=== PATIENT | male | born 1965 | race Caucasian/White ===

== ENCOUNTER 2017-03-16 00:34 | Emergency (ER) | payer OTHER ==
[2017-03-16 00:41] VITALS: RESP 16
[2017-03-16] MEDS ORDERED: ASPIRIN 81 MG CHEWABLE TAB PO ONE (00:44)
[2017-03-16] MEDS ORDERED: NS 1,000 ML IV ONE ×2 (00:44→02:12)
--- NOTE | 2017-03-16 00:50 | CPEKG ---
Heart Rate: 65 RR Interval: 923 P-R Interval: 160 QRSD Interval: 102 QT Interval: 440 QTC Interval: 458 P [place]: 67 QRS [place]: 82 T Wave [place]: 49 EKG Severity - NORMAL ECG - EKG Impression: SINUS RHYTHM Electronically Signed By: Ceasar Mcneal 16-Mar-2017 06:58:08
--- NOTE | 2017-03-16 00:56 | EDPHY ---
H & P Stated Complaint: CP, lightheaded HPI/ROS: HPI CHIEF COMPLAINT: Fatigue, lightheadedness, chest discomfort HISTORY OF PRESENT ILLNESS: This patient is a 52-year-old male, he is otherwise healthy does have hyperlipidemia and hypertension also he reports a family history of cardiac disease in his father who at age 62 from atherosclerosis and smoking he presents emergency room as he states he did not feel very well today. He had some nausea and lightheadedness. He also developed some chest discomfort this evening describes as substernal as a discomfort sensation but no significant pain. Denies focal weakness but does endorse global fatigue and malaise. He decided to get on lining [employer] the symptoms arm thought maybe he should come to the emergency room for cardiac evaluation. Upon arrival to the emergency room is hemodynamically stable he does complain of some chest discomfort as a discomfort sensation in the substernal region. Also some shortness of breath. And global fatigue and global weakness. Endorses nausea. Past Medical History: Hypertension, hyperlipidemia Past Surgical History: Left ankle surgery, shoulder surgery Social History: Denies daily use drugs alcohol tobacco products. Family History: Family history of cardiac disease. ROS REVIEW OF SYSTEMS: A comprehensive 10 point review of systems is otherwise negative aside from elements mentioned in the history of present illness. Exam Constitutional appears well nontoxic triage nursing summary reviewed, vital signs reviewed, awake/alert. Eyes normal conjunctivae and sclera, EOMI, PERRLA. HENT normal inspection, atraumatic, moist mucus membranes, no epistaxis, neck supple/ no meningismus, no raccoon eyes. Respiratory clear to auscultation bilaterally, normal breath sounds, no respiratory distress, no wheezing. Cardiovascular rate normal, regular rhythm, no murmur, no edema, distal pulses normal. Gastrointestinal soft, non-tender, no rebound, no guarding, normal bowel sounds, no distension, no pulsatile mass. Genitourinary no CVA tenderness. Musculoskeletal no midline vertebral tenderness, full range of motion, no calf swelling, no tenderness of extremities, no meningismus, good pulses, neurovascularly intact. Skin pink, warm, & dry, no rash, skin atraumatic. Neurologic awake, alert and oriented x 3, AAOx3, moves all 4 extremities equally, motor intact, sensory intact, CN II-XII intact, normal cerebellar, normal vision, normal speech. Psychiatric normal mood/affect. Heme/Lymph/Immune no lymphadenopathy. 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 Re-evaluate. Re-evaluation: EKG interpretation by me on record in [employer] system. Impression time of EKG 0048: This EKG is sinus rhythm rate of 65. There is no acute ischemic changes specifically no ST elevation. ST depression or significant T-wave abnormalities. No prolonged intervals. Unremarkable EKG. 0211: Blood work has been reviewed negative troponin negative D-dimer. Chest x -ray unremarkable. Patient is feeling better after IV fluids. I recommend that he be admitted overnight to the hospital for observation serial cardiac markers and stress test however patient states that he does not want to be admitted and is refusing hospital admission states he wants to go home. He thinks he has an acute anxiety presentation. Since he is declined hospital admission the plan will be to repeat his EKG and troponin at the 4 hour love. If these are negative I will allow her to go home as he does not have ongoing chest pain at this time. He will need close cardiology follow-up. Additionally if he develops chest pain or shortness of breath he should return to the emergency room he understands this. ED x-ray chest one view negative for acute cardiopulmonary disease. 0502:AM: Patient's repeat EKG time of EKG 5:01 a.m., this is sinus rhythm rate of 59 no acute ischemic change appreciated this EKG. Unremarkable EKG. Unchanged from previous EKG. Patient's repeat troponin is pending at this time. Patient has been sleeping here in the emergency room he has no complaints he denies chest pain or shortness of breath he feels well. He is eager to get home. I do recommend that he follows up with Cardiology on outpatient basis. Additionally he understands return emergency room if develops chest pain shortness of breath or worsening symptoms. He is agreeable this plan. I recommend he sees cardiology over the next week to 2 weeks. Return if worse. Repeat troponin is negative. Patient resting no complaints. Safe for discharge. Understands return emergency room if he has worsening symptoms questions or concerns. Source: Patient - Personal History Current Tetanus/Diphtheria Vaccine: Unsure - Medical/Surgical History Hx Asthma: No Hx Chronic Respiratory Disease: No Hx Diabetes: No Hx Cardiac Disease: No Hx Renal Disease: No Hx Cirrhosis: No Hx Alcoholism: No Hx HIV/AIDS: No Hx Splenectomy or Spleen Trauma: No Other PMH: PMHx: heartburn, high cholesterol. PSHx: shoulder, ankle - Social History Smoking Status: Never smoked Constitutional: Initial Vital Signs Temperature (C) 36.5 C 03/16/17 00:37 Heart Rate 63 03/16/17 00:37 Respiratory Rate 16 03/16/17 00:37 Blood Pressure 146/82 H 03/16/17 00:37 O2 Sat (%) 97 03/16/17 00:37 O2 Delivery Mode Room Air Allergies/Adverse Reactions: No Known Allergies Allergy (Unverified 03/16/17 00:36) Home Medications: Medication Instructions Recorded Atorvastatin Calcium 03/16/17 Nexium 03/16/17 Medical Decision Making - Data Points Laboratory Results: Laboratory Results 03/16/17 00:50 03/16/17 00:50 03/16/17 03/16/17 03/16/17 05:00 00:50 00:50 WBC RBC Hgb Hct MCV MCH MCHC RDW Plt Count MPV Neut % (Auto) Lymph % (Auto) [place] % (Auto) Eos % (Auto) Baso % (Auto) Nucleat RBC Rel Count Absolute Neuts (auto) Absolute Lymphs (auto) Absolute Monos (auto) Absolute Eos (auto) Absolute Basos (auto) Absolute Nucleated RBC Immature Gran % Immature Gran # PT 13.3 SEC SEC (12.0-15.0) INR 1.02 (0.83-1.16) APTT 25.7 SEC SEC (23.0-38.0) D-Dimer < 0.27 ug/mLFEU ug/mLFEU (0.00-0.50) Sodium 139 mEq/L mEq/L (134-144) Potassium 3.5 mEq/L mEq/L (3.5-5.2) Chloride 98 mEq/L mEq/L (97-110) Carbon Dioxide 25 mEq/l mEq/l (22-31) Anion Gap 16 mEq/L mEq/L (8-16) BUN 12 mg/dL mg/dL (7-23) Creatinine 1.3 mg/dL mg/dL (0.7-1.3) Estimated GFR 58 Glucose 88 mg/dL mg/dL (70-100) Calcium 9.8 mg/dL mg/dL (8.5-10.4) Magnesium 1.9 mg/dL mg/dL (1.6-2.3) Total Bilirubin 1.1 mg/dL mg/dL (0.1-1.4) Conjugated Bilirubin 0.0 mg/dL mg/dL (0.0-0.5) Unconjugated Bilirubin 1.1 mg/dL mg/dL (0.0-1.1) AST 47 IU/L IU/L (17-59) ALT 54 IU/L IU/L (21-72) Alkaline Phosphatase 56 IU/L IU/L (38-126) Creatine Kinase 285 IU/L H IU/L (0-224) CK-MB (CK-2) Fraction 2.36 ng/mL ng/mL (0.00-3.19) CK-MB (CK-2) % 0.8 % % (0.0-4.0) Creatine Kinase Interp NEGATIVE (NEGATIVE) Troponin I < 0.012 ng/mL ng/mL < 0.012 ng/mL ng/mL (0.000-0.034) (0.000-0.034) NT-Pro-B Natriuret Pep 35 pg/mL pg/mL (0-125) Total Protein 7.8 g/dL g/dL (6.3-8.2) Albumin 5.1 g/dL H g/dL (3.5-5.0) Lipase 111 IU/L IU/L (23-300) 03/16/17 00:50 WBC 6.46 10^3/uL 10^3/uL (3.80-9.50) RBC 5.01 10^6/uL 10^6/uL (4.40-6.38) Hgb 16.0 g/dL g/dL (13.7-17.5) Hct 44.4 % % (40.0-51.0) MCV 88.6 fL fL (81.5-99.8) MCH 31.9 pg pg (27.9-34.1) MCHC 36.0 g/dL g/dL (32.4-36.7) RDW 11.7 % % (11.5-15.2) Plt Count 269 10^3/uL 10^3/uL (150-400) MPV 9.2 fL fL (8.7-11.7) Neut % (Auto) 56.0 % % (39.3-74.2) Lymph % (Auto) 33.3 % % (15.0-45.0) [place] % (Auto) 8.8 % % (4.5-13.0) Eos % (Auto) 1.2 % % (0.6-7.6) Baso % (Auto) 0.5 % % (0.3-1.7) Nucleat RBC Rel Count 0.0 % % (0.0-0.2) Absolute Neuts (auto) 3.62 10^3/uL 10^3/uL (1.70-6.50) Absolute Lymphs (auto) 2.15 10^3/uL 10^3/uL (1.00-3.00) Absolute Monos (auto) 0.57 10^3/uL 10^3/uL (0.30-0.80) Absolute Eos (auto) 0.08 10^3/uL 10^3/uL (0.03-0.40) Absolute Basos (auto) 0.03 10^3/uL 10^3/uL (0.02-0.10) Absolute Nucleated RBC 0.00 10^3/uL 10^3/uL (0-0.01) Immature Gran % 0.2 % % (0.0-1.1) Immature Gran # 0.01 10^3/uL 10^3/uL (0.00-0.10) PT INR APTT D-Dimer Sodium Potassium Chloride Carbon Dioxide Anion Gap BUN Creatinine Estimated GFR Glucose Calcium Magnesium Total Bilirubin Conjugated Bilirubin Unconjugated Bilirubin AST ALT Alkaline Phosphatase Creatine Kinase CK-MB (CK-2) Fraction CK-MB (CK-2) % Creatine Kinase Interp Troponin I NT-Pro-B Natriuret Pep Total Protein Albumin Lipase Medications Given: Discontinued Medications Aspirin (Aspirin) 324 mg PO EDNOW ONE Stop: 03/16/17 00:45 Last Admin: 03/16/17 01:12 Dose: 324 mg Sodium Chloride (Ns) 1,000 mls @ 0 mls/hr IV EDNOW ONE; Wide Open PRN Reason: Protocol Stop: 03/16/17 00:45 Last Admin: 03/16/17 01:11 Dose: 1,000 mls Sodium Chloride (Ns) 1,000 mls @ 0 mls/hr IV ONCE ONE PRN Reason: Wide Open Stop: 03/16/17 02:13 Last Admin: 03/16/17 02:20 Dose: 1,000 mls Ondansetron HCl (Zofran) 4 mg IVP EDNOW ONE Stop: 03/16/17 00:58 Last Admin: 03/16/17 01:12 Dose: 4 mg Departure - Departure Disposition: Home, Routine, Self-Care Clinical Impression: Lightheadedness Condition: Good Instructions: Near Syncope (ED), Lightheadedness (ED) Additional Instructions: 1. Return immediately to the emergency room if you develops chest pain shortness of breath or have a syncopal or passing out episode. 2. I do recommend he follow up with Cardiology over the next week to 2 weeks. Please call their for follow-up appointment. I would like you to get a stress test or be evaluated. 3. Return to the ER for worsening symptoms. Referrals: Faith Soler MD [Primary Care Provider] - As per Instructions Sander Garcia MD [Medical Doctor] - As per Instructions
[2017-03-16] MEDS ORDERED: ONDANSETRON 4 MG/2 ML VIAL IVP ONE (00:57)
[2017-03-16 01:00] LABS: % IMMATURE GRANULYOCYTES 0.2 % (0.0-1.1); ABSOLUTE IMMATURE GRANULOCYTES 0.01 10^3/uL (0.00-0.10); ADD DIFF? NO; ADD MORPH? NO; ADD SCAN? NO; ATYPICAL LYMPHOCYTE FLAG 10 (0-99); FRAGMENT RBC FLAG 0 (0-99); HEMATOCRIT 44.4 % (40.0-51.0); LEFT SHIFT FLG 0 (0-99); LIPEMIA HEMOLYSIS FLAG 90 (0-99); MEAN CELL HEMOGLOBIN 31.9 pg (27.9-34.1); MEAN CELL VOLUME 88.6 fL (81.5-99.8); MEAN PLATELET VOLUME 9.2 fL (8.7-11.7); PLATELET CLUMPS FLAG 0 (0-99); PLATELET COUNT 269 10^3/uL (150-400); RED BLOOD CELL COUNT 5.01 10^6/uL (4.40-6.38); RED CELL DISTRIBUTION WIDTH 11.7 % (11.5-15.2)
[2017-03-16 01:08] LABS: INR 1.02 (0.83-1.16); PROTIME(PATIENT) 13.3 SEC (12.0-15.0)
[2017-03-16 01:13] LABS: APTT 25.7 SEC (23.0-38.0)
[2017-03-16 01:21] LABS: ALANINE AMINOTRANSFERASE 54 IU/L (21-72); ALBUMIN 5.1 g/dL (3.5-5.0); ALKALINE PHOSPHATASE 56 IU/L (38-126); ANION GAP 16 mEq/L (8-16); ASPARTATE AMINOTRANSFERASE 47 IU/L (17-59); BILIRUBIN,TOTAL 1.1 mg/dL (0.1-1.4); BILIRUBIN-UNCONJUGATED 1.1 mg/dL (0.0-1.1); CALCIUM 9.8 mg/dL (8.5-10.4); CARBON DIOXIDE 25 mEq/l (22-31); CHLORIDE 98 mEq/L (97-110); CREATININE 1.3 mg/dL (0.7-1.3); GLOMERULAR FILTRATION RATE 58; GLUCOSE 88 mg/dL (70-100); MAGNESIUM 1.9 mg/dL (1.6-2.3); POTASSIUM 3.5 mEq/L (3.5-5.2); SODIUM 139 mEq/L (134-144); TOTAL PROTEIN 7.8 g/dL (6.3-8.2)
[2017-03-16 01:34] LABS: CK-MB INTERPRETATION NEGATIVE (NEGATIVE); CREATINE KINASE-MB FRACTION 2.36 ng/mL (0.00-3.19); TROPONIN I < 0.012 ng/mL (0.000-0.034)
--- NOTE | 2017-03-16 05:03 | CPEKG ---
Heart Rate: 59 RR Interval: 1017 P-R Interval: 168 QRSD Interval: 100 QT Interval: 452 QTC Interval: 448 P [place]: 77 QRS [place]: 66 T Wave [place]: 37 EKG Severity - NORMAL ECG - EKG Impression: SINUS RHYTHM Electronically Signed By: Ceasar Mcneal 16-Mar-2017 06:58:08
[2017-03-16] MEDS ORDERED: LORAZEPAM 1 MG PREPACK#4 BTL TAKEHOME ONE ×2 (06:06→06:07)
[2017-03-16 06:16] VITALS: BP 135/84; PULSE 59; TEMP 98.6; O2SAT 97
== END 2017-03-16 06:17 | disposition home or self-care (01) ==
DX: R42 Dizziness and giddiness (principal); I10 Essential (primary) hypertension; E86.9 Volume depletion, unspecified
CPT/HCPCS: 96374; J2405

== ENCOUNTER 2017-03-17 18:35 | Emergency (ER) | payer OTHER ==
[2017-03-17 18:42] VITALS: TEMP 97.7
[2017-03-17] MEDS ORDERED: KETOROLAC 30 MG/1 ML SDV IVP ONE (19:26)
[2017-03-17] MEDS ORDERED: NS 1,000 ML IV ONE (19:26)
[2017-03-17] MEDS ORDERED: METOCLOPRAMIDE 10 MG/2 ML VIAL IVP ONE (19:26)
[2017-03-17] MEDS ORDERED: DEXAMETHASONE 10 MG/ML VIAL IVP ONE (19:26)
--- NOTE | 2017-03-17 19:29 | EDPHY ---
H & P Stated Complaint: RAMIREZ/N/V PAIN IN NECK/ SEEN WEDNESDAY FOR SAME Time Seen by Provider: 03/17/17 19:08 HPI/ROS: CHIEF COMPLAINT: Headache, body aches HISTORY OF PRESENT ILLNESS: The patient is a 52-year-old man who complains of headache and body aches. He states that he has had a sinus infection for about 2 weeks. He is developed a headache over the last 48 hours and body aches but no fever. No sore throat. No shortness of breath. Wednesday evening he also developed some chest tightness and had trouble sleeping and was alone so he came to the ER for evaluation. He had negative EKGs and troponin x2. Refused admission and was discharged home in the morning. He states there are that he continues to have a headache. He did vomit once this morning. He denies abdominal pain. No rashes. REVIEW OF SYSTEMS: Constitutional: denies: chills, fever, recent illness, recent injury EENTM: denies: blurred vision, double vision, nose congestion Respiratory: denies: cough, shortness of breath Cardiac: denies: chest pain, irregular heart rate, lightheadedness, palpitations Gastrointestinal/Abdominal: denies: abdominal pain, diarrhea, nausea, vomiting, blood streaked stools Genitourinary: denies: dysuria, frequency, hematuria, pain Musculoskeletal: denies: joint pain, muscle pain Skin: denies: lesions, rash, jaundice, bruising Neurological: denies: headache, numbness, paresthesia, tingling, dizziness, weakness Hematologic/Lymphatic: denies: blood clots, easy bleeding, easy bruising Immunologic/allergic: denies: HIV/AIDS, transplant EXAM: GENERAL: Well-appearing, well-nourished and in no acute distress. HEAD: Atraumatic, normocephalic. EYES: Pupils equal round and reactive to light, extraocular movements intact, sclera anicteric, conjunctiva are normal. ENT: TMs normal, nares patent, oropharynx clear without exudates. Moist mucous membranes. NECK: Normal range of motion, supple without lymphadenopathy or JVD. LUNGS: Breath sounds clear to auscultation bilaterally and equal. No wheezes rales or rhonchi. HEART: Regular rate and rhythm without murmurs, rubs or gallops. ABDOMEN: Soft, nontender, normoactive bowel sounds. No guarding, no rebound. No masses appreciated. BACK: No CVA tenderness, no spinal tenderness, step-offs or deformities EXTREMITIES: Normal range of motion, no pitting or edema. No clubbing or cyanosis. NEUROLOGICAL: Cranial nerves II through XII grossly intact. Normal speech, normal gait. 5/5 strength, normal movement in all extremities, normal sensation PSYCH: Normal mood, normal affect. SKIN: Warm, dry, normal turgor, no visible rashes or lesions. Source: Patient Exam Limitations: No limitations - Personal History Current Tetanus/Diphtheria Vaccine: Yes - Medical/Surgical History Hx Asthma: No Hx Chronic Respiratory Disease: No Hx Diabetes: No Hx Cardiac Disease: No Hx Renal Disease: No Hx Cirrhosis: No Hx Alcoholism: No Hx HIV/AIDS: No Hx Splenectomy or Spleen Trauma: No Other PMH: PMHx: heartburn, high cholesterol. PSHx: shoulder, ankle - Family History Significant Family History: No pertinent family hx - Social History Smoking Status: Never smoked Alcohol Use: Sober Drug Use: None Constitutional: Initial Vital Signs Temperature (C) 36.5 C 03/17/17 18:38 Heart Rate 58 L 03/17/17 18:38 Respiratory Rate 20 03/17/17 18:38 Blood Pressure 160/97 H 03/17/17 18:38 O2 Sat (%) 97 03/17/17 18:38 O2 Delivery Mode Room Air Allergies/Adverse Reactions: No Known Allergies Allergy (Verified 03/17/17 18:38) Home Medications: Medication Instructions Recorded Atorvastatin Calcium 03/16/17 Nexium 03/16/17 Medical Decision Making ED Course/Re-evaluation: 9:15 p.m. the patient is doing better after IV fluids. He thinks that he might be does dehydrated is planning to go buy some Gatorade. His flu test was rejected for some reason. He does not have a fever. He does not wish to repeated. Declines further testing or observation and is eager to go home. We discussed indications for returning. Differential Diagnosis: Partial list of the Differential diagnosis considered include but were not limited to; dehydration, sinusitis, influenza, viral syndrome and although unlikely based on the history and physical exam, I also considered meningitis, subarachnoid, acute coronary disease, pneumonia. I discussed these differential diagnoses and the plan with the patient as well as the usual and expected course. The patient understands that the diagnosis is provisional and that in medicine we are not always correct and that further workup is often warranted. Usual and customary warnings were given. All of the patient's questions were answered. The patient was instructed to return to the emergency department should the symptoms at all worsen or return, otherwise to followup with the physician as we discussed. - Data Points Laboratory Results: Laboratory Results 03/17/17 18:58 03/17/17 18:58 Medications Given: Discontinued Medications Dexamethasone (Decadron Injection) 10 mg IVP EDNOW ONE Stop: 03/17/17 19:27 Last Admin: 03/17/17 19:57 Dose: 10 mg Sodium Chloride (Ns) 1,000 mls @ 0 mls/hr IV ONCE ONE; Wide Open PRN Reason: Protocol Stop: 03/17/17 19:27 Last Admin: 03/17/17 19:57 Dose: 1,000 mls Ketorolac Tromethamine (Toradol) 30 mg IVP EDNOW ONE Stop: 03/17/17 19:27 Last Admin: 03/17/17 19:57 Dose: 30 mg Metoclopramide HCl (Reglan Injection) 10 mg IVP EDNOW ONE Stop: 03/17/17 19:27 Last Admin: 03/17/17 19:57 Dose: 10 mg Departure - Departure Disposition: Home, Routine, Self-Care Clinical Impression: Headache Qualifiers: Headache type: unspecified Headache chronicity pattern: acute headache Intractability: not intractable Qualified Code(s): R51 - Headache Condition: Fair Instructions: Acute Headache (ED) Referrals: Faith Soler MD [Primary Care Provider] - As per Instructions
[2017-03-17 19:31] LABS: % IMMATURE GRANULYOCYTES 0.3 % (0.0-1.1); ABSOLUTE IMMATURE GRANULOCYTES 0.02 10^3/uL (0.00-0.10); ADD DIFF? NO; ADD MORPH? NO; ADD SCAN? NO; ATYPICAL LYMPHOCYTE FLAG 20 (0-99); FRAGMENT RBC FLAG 0 (0-99); HEMATOCRIT 40.4 % (40.0-51.0); HEMOGLOBIN 14.6 g/dL (13.7-17.5); LEFT SHIFT FLG 0 (0-99); LIPEMIA HEMOLYSIS FLAG 90 (0-99); MEAN CELL HEMOGLOBIN 31.5 pg (27.9-34.1); MEAN CELL HEMOGLOBIN CONCENTR. 36.1 g/dL (32.4-36.7); MEAN CELL VOLUME 87.3 fL (81.5-99.8); MEAN PLATELET VOLUME 9.5 fL (8.7-11.7); PLATELET CLUMPS FLAG 0 (0-99); PLATELET COUNT 249 10^3/uL (150-400); RED BLOOD CELL COUNT 4.63 10^6/uL (4.40-6.38); RED CELL DISTRIBUTION WIDTH 11.5 % (11.5-15.2)
[2017-03-17 19:37] LABS: ANION GAP 11 mEq/L (8-16); CALCIUM 9.6 mg/dL (8.5-10.4); CARBON DIOXIDE 25 mEq/l (22-31); CHLORIDE 98 mEq/L (97-110); GLOMERULAR FILTRATION RATE > 60; GLUCOSE 88 mg/dL (70-100); POTASSIUM 3.5 mEq/L (3.5-5.2); SODIUM 134 mEq/L (134-144)
[2017-03-17 21:06] LABS: COLOR PALE YELLOW; LEUKOCYTE ESTERASE,URINE NEGATIVE (NEGATIVE); NITRITE,URINE NEGATIVE (NEGATIVE)
[2017-03-17 21:19] LABS: MUCUS TRACE /lpf (NONE-1+)
[2017-03-17 21:20] LABS: WBC,URINE NONE SEEN /hpf (0-3)
[2017-03-17 21:27] VITALS: BP 136/82; PULSE 56; RESP 16; O2SAT 95
== END 2017-03-17 21:25 | disposition home or self-care (01) ==
DX: R51 Headache (principal); E86.9 Volume depletion, unspecified
CPT/HCPCS: 96374; J1100; J1885; J2765